=== PATIENT | male | born 1935 | race Caucasian/White ===

== ENCOUNTER → 2020-03-02 10:39 | Outpatient (REF) | payer MEDICARE, SELFPAY | LOC: OLS.ACW300 10:39 | PROVIDERS: Visit Provider Family Medicine | DX: Z03.818 Encounter for observation for suspected exposure to other biological agents ruled out (principal) | CPT/HCPCS: 87635; U0003 ==

== ENCOUNTER → 2020-03-08 13:12 | Outpatient (REF) | payer MEDICARE, SELFPAY | LOC: OLS.ACW300 13:12 | PROVIDERS: Referring Provider Family Medicine; Visit Provider Family Medicine | DX: Z03.818 Encounter for observation for suspected exposure to other biological agents ruled out (principal) | CPT/HCPCS: 87635; U0003 ==

== ENCOUNTER → 2020-03-20 05:00 | Outpatient (REF) | payer MEDICARE, SELFPAY | LOC: OLS.ACW300 05:00 | PROVIDERS: Referring Provider Family Medicine; Visit Provider Family Medicine | DX: S32.010D Wedge compression fracture of first lumbar vertebra, subsequent encounter for fracture with routine healing (principal); R26.2 Difficulty in walking, not elsewhere classified; W19.XXXD Unspecified fall, subsequent encounter | CPT/HCPCS: 36415; 84134 ==